=== PATIENT | male | born 1975 | race African-American/Black ===

== ENCOUNTER 2018-11-28 10:55 | Emergency (ER) | payer OTHER ==
[2018-11-28] MEDS: IBUPROFEN 600 MG TAB PO (13:00)
== END 2018-11-28 14:36 | disposition home or self-care (01) ==
LOC: FTE 14:36
DX: R20.2 Paresthesia of skin (principal); F17.210 Nicotine dependence, cigarettes, uncomplicated; F15.20 Other stimulant dependence, uncomplicated
CPT/HCPCS: 70450; 72131; 99284-25

== ENCOUNTER 2019-01-02 03:03 | Emergency (ER) | payer OTHER ==
[2019-01-02] MEDS: IBUPROFEN 600 MG TAB PO (06:50)
== END 2019-01-02 07:33 | disposition home or self-care (01) ==
LOC: FTE 03:03
DX: M54.41 Lumbago with sciatica, right side (principal); F17.210 Nicotine dependence, cigarettes, uncomplicated
CPT/HCPCS: 99282; Z7502